=== PATIENT | female | born 1975 | race Caucasian/White ===

== ENCOUNTER 2018-11-25 16:45 | Emergency (ER) | payer BC ==
[2018-11-25 18:22] LABS: ANION GAP 12.9; CHLORIDE,CL 103 mmol/L (101-111); SODIUM,NA 138 mmol/L (135-145)
[2018-11-25] MEDS ORDERED: Iopamidol 612 MG/ML 100 ML Bottle IVPUSH ONE (18:31)
--- NOTE | 2018-11-25 18:47 | EDM.PDOC ---
<Edgar Radford Anupama - Last Filed: 11/25/18 18:42> ED HPI GENERAL MEDICAL PROBLEM - General Chief Complaint: CLINICAL APPLICATION CONSULTANT Problem Stated Complaint: PROBLEMS WITH BLEEDING & CLOTS-PAIN IN BACK Time Seen by Provider: 11/25/18 18:00 Source of Information: Reports: Patient History Limitations: Reports: No Limitations - History of Present Illness INITIAL COMMENTS - FREE TEXT/NARRATIVE: This 43 yo female patient reports to the ED due to right lower quadrant abdominal pain. The patient reports she has not had a menstrual cycle in about 1 year, but started to have bleeding on Wednesday. The patient reports she did see Dr. Sultana on Wednesday and was advised to come to the ED if she started to have increased bleeding or clots. The patient reports she has been having abdominal pain for the past 2 weeks, but her pain got worse today. The patient reports she has had a 2 pound weight gain over the past couple of days, but has not been eating much. Onset: Other (see above) Location: Reports: Abdomen Quality: Reports: Other Severity: Severe Improves with: Reports: None Worsens with: Reports: None Context: Reports: Other Lower Abdomen Pain Score (Numeric/FACES): 10 - Related Data Allergies Allergy/AdvReac Type Severity Reaction Status Date / Time erythromycin base Allergy Hives Verified 11/25/18 17:39 [Erythromycin Base] Penicillins Allergy Cannot Verified 11/25/18 17:39 Remember prednisone Allergy Cannot Verified 11/25/18 17:39 Remember Sulfa (Sulfonamide Allergy Cannot Verified 11/25/18 17:39 Antibiotics) Remember Home Meds: Home Meds Amitriptyline [Elavil] 75 mg PO BEDTIME 06/26/14 [History] Aspirin [Adult Low Dose Aspirin EC] 81 mg PO DAILY 06/26/14 [History] Cyanocobalamin (Vitamin B12) [Vitamin B12] 500 mcg PO DAILY 06/26/14 [History] Fish Oil/[place]-3 Fatty Acids [Fish Oil] 1,000 mg PO TID 06/26/14 [History] Lisinopril 20 mg PO DAILY 06/26/14 [History] Niacin 500 mg PO TID 06/26/14 [History] PNV95/Ferrous Fumarate/FA [ Multivitamins] 1 each PO DAILY 06/26/14 [ History] Polyethylene Glycol 3350 [MiraLAX] 17 gm PO DAILY 06/26/14 [History] Potassium Gluconate 99 mg PO DAILY 06/26/14 [History] Vitamin E 400 unit PO DAILY 06/26/14 [History] atorvaSTATin Calcium [Atorvastatin Calcium] 80 mg PO BEDTIME 06/26/14 [History] Acetaminophen [Tylenol Arthritis] 1,300 mg PO TID 07/03/17 [History] Cholecalciferol (Vitamin D3) [Vitamin D3] 2,000 unit PO DAILY 07/03/17 [History] Insulin Aspart [NovoLOG] 0 units SQ DAILY 07/03/17 [History] L.acidoph,Paracasei, B.lactis [Probiotic] 1 cap PO BID 07/03/17 [History] Meclizine HCl 25 mg PO TID PRN 07/03/17 [History] hydrOXYzine pamoate [Hydroxyzine Pamoate] 25 mg PO TID PRN 07/03/17 [History] Baclofen 10 mg PO TID 07/14/18 [History] Gabapentin [Neurontin] 600 mg PO TID 07/14/18 [History] buPROPion HCl [Wellbutrin Xl] 450 mg PO DAILY 07/14/18 [History] Dapagliflozin Propanediol [Farxiga] 10 mg PO DAILY 11/25/18 [History] Esomeprazole Magnesium 40 mg pe PO DAILY 11/25/18 [History] Magnesium 200 mg PO DAILY 11/25/18 [History] Mupirocin Cream [Bactroban Crm] 1 applic TOP BID 11/25/18 [History] oxyCODONE HCl/Acetaminophen [Percocet 5-325 mg Tablet] 1 tab PO Q8HR PRN [History] traZODone HCl [Trazodone HCl] 50 mg PO BEDTIME 11/25/18 [History] Past Medical History HEENT History: Reports: Sinusitis Cardiovascular History: Reports: High Cholesterol, Hypertension Gastrointestinal History: Reports: GERD Genitourinary History: Reports: UTI, Recurrent CLINICAL APPLICATION CONSULTANT History: Reports: Musculoskeletal History: Reports: Arthritis Neurological History: Reports: Vertigo Psychiatric History: Reports: Anxiety, Depression, Panic Attack Endocrine/Metabolic History: Reports: Diabetes, Type I Oncologic (Cancer) History: Reports: Lymphoma Dermatologic History: Reports: Cellulitis - Past Surgical History GI Surgical History: Reports: Cholecystectomy Female Surgical History: Reports: Section Musculoskeletal Surgical History: Reports: Shoulder Surgery Dermatological Surgical History: Reports: None Social & Family History - Family History Family Medical History: Noncontributory HEENT: Reports: None - Tobacco Use Smoking Status *Q: Never Smoker Second Hand Smoke Exposure: No - Caffeine Use Caffeine Use: Reports: Coffee - Recreational Drug Use Recreational Drug Use: No ED ROS GENERAL - Review of Systems Review Of Systems: ROS reveals no pertinent complaints other than HPI. ED EXAM, GI/ABD - Physical Exam Exam: See Below Exam Limited By: No Limitations General Appearance: Alert, WD/WN, Moderate Distress Eyes: Bilateral: Normal Appearance, EOMI Ears: Normal External Exam, Normal Canal, Hearing Grossly Normal, Normal TMs Nose: Normal Inspection, Normal Mucosa, No Blood Throat/Mouth: Normal Inspection, Normal Lips, Normal Teeth, Normal Gums, Normal Oropharynx, Normal Voice, No Airway Compromise Head: Atraumatic, Normocephalic Neck: Normal Inspection, Supple, Non-Tender, Full Range of Motion Respiratory/Chest: No Respiratory Distress, Lungs Clear, Normal Breath Sounds, No Accessory Muscle Use, Chest Non-Tender Cardiovascular: Normal Peripheral Pulses, Regular Rate, Rhythm, No Edema, No Gallop, No JVD, No Murmur, No Rub GI/Abdominal Exam: Normal Bowel Sounds, Soft, Guarding, Tender (RLQ) Rectal (Female) Exam: Deferred Back Exam: Normal Inspection, Full Range of Motion, NT Extremities: Normal Inspection, Normal Range of Motion, Non-Tender, Normal Capillary Refill, No Pedal Edema Neurological: Alert, Oriented, CN II-XII Intact, Normal Cognition, Normal Gait, Normal Reflexes, No Motor/Sensory Deficits Psychiatric: Normal Affect, Normal Mood Skin Exam: Warm, Dry, Intact, Normal Color, No Rash Lymphatic: No Adenopathy Course - Vital Signs Last Recorded V/S: Last Vital Signs Temp 37.1 C 11/25/18 19:59 Pulse 66 11/25/18 19:59 Resp 19 11/25/18 19:59 BP 121/67 11/25/18 19:59 Pulse Ox 97 11/25/18 19:59 - Orders/Labs/Meds Orders: Active Orders 24 hr Category Date Time Status HCG QUANTITATIVE [CHEM] Stat Lab 11/25/18 17:30 Received Labs: Laboratory Tests 11/25/18 11/25/1811/25/19 Range/Units 17:30 17:30 18:30 WBC 7.9 (5.0-10.0) 10^3/uL RBC 4.41 (4.2-5.4) 10^6/uL Hgb 13.8 (12.0-16.0) g/dL Hct 40.7 (37.0-47.0) % MCV 92.3 (80-100) fL MCH 31.3 (27.0-34.0) pg MCHC 33.9 (33.0-35.0) g/dL Plt Count 215 (150-450) 10^3/uL Neut % (Auto) 42.9 (42.2-75.2) % Lymph % (Auto) 44.8 (20.5-50.1) % [place] % (Auto) 10.0 H (2-8) % Eos % (Auto) 1.8 (1.0-3.0) % Baso % (Auto) 0.5 (0.0-1.0) % Sodium 138 (135-145) mmol/L Potassium 3.9 (3.6-5.0) mmol/L Chloride 103 (101-111) mmol/L Carbon Dioxide 26.0 (21.0-31.0) mmol/L Anion Gap 12.9 BUN 13 (7-18) mg/dL Creatinine 0.9 (0.6-1.3) mg/dL Est Cr Clr Drug Dosing 69.54 mL/min Estimated GFR (MDRD) > 60 BUN/Creatinine Ratio 14.44 Glucose 168 H (74-105) mg/dL Calcium 8.9 (8.4-10.2) mg/dl Total Bilirubin 0.6 (0.2-1.0) mg/dL AST 37 (10-42) IU/L ALT 53 (10-60) IU/L Alkaline Phosphatase 66 (42-121) IU/L Total Protein 7.2 (6.7-8.2) g/dl Albumin 4.0 (3.2-5.5) g/dl Globulin 3.2 Albumin/Globulin Ratio 1.25 Urine Color (YELLOW) Urine Appearance (CLEAR) Urine pH (5.0-9.0) Ur Specific [place] (1.005-1.030) Urine Protein (NEGATIVE) Urine Glucose (UA) (NEGATIVE) Urine Ketones (NEGATIVE) Urine Occult Blood (NEGATIVE) Urine Nitrite (NEGATIVE) Urine Bilirubin (NEGATIVE) Urine Urobilinogen (0.2-1.0) mg/dL Ur Leukocyte Esterase (NEGATIVE) Urine RBC /HPF Urine WBC (0-5/HPF) /HPF Ur Epithelial Cells (NOT SEEN) /HPF Amorphous Sediment (NOT SEEN) /HPF Urine Bacteria (0-FEW/HPF) /HPF Urine Mucus (NOT SEEN) /LPF Urine Opiates Screen Negative (NEGATIVE) Ur Oxycodone Screen Positive H (NEGATIVE) Urine Methadone Screen Negative (NEGATIVE) Ur Barbiturates Screen Negative (NEGATIVE) U Tricyclic Antidepress Negative (NEGATIVE) Ur Phencyclidine Scrn Negative (NEGATIVE) Ur Amphetamine Screen Negative (NEGATIVE) U Methamphetamines Scrn Negative (NEGATIVE) Urine MDMA Screen Negative (NEGATIVE) U Benzodiazepines Scrn Negative (NEGATIVE) Urine Cocaine Screen Negative (NEGATIVE) U Marijuana (THC) Screen Negative (NEGATIVE) 11/25/18 Range/Units 18:30 WBC (5.0-10.0) 10^3/uL RBC (4.2-5.4) 10^6/uL Hgb (12.0-16.0) g/dL Hct (37.0-47.0) % MCV (80-100) fL MCH (27.0-34.0) pg MCHC (33.0-35.0) g/dL Plt Count (150-450) 10^3/uL Neut % (Auto) (42.2-75.2) % Lymph % (Auto) (20.5-50.1) % [place] % (Auto) (2-8) % Eos % (Auto) (1.0-3.0) % Baso % (Auto) (0.0-1.0) % Sodium (135-145) mmol/L Potassium (3.6-5.0) mmol/L Chloride (101-111) mmol/L Carbon Dioxide (21.0-31.0) mmol/L Anion Gap BUN (7-18) mg/dL Creatinine (0.6-1.3) mg/dL Est Cr Clr Drug Dosing mL/min Estimated GFR (MDRD) BUN/Creatinine Ratio Glucose (74-105) mg/dL Calcium (8.4-10.2) mg/dl Total Bilirubin (0.2-1.0) mg/dL AST (10-42) IU/L ALT (10-60) IU/L Alkaline Phosphatase (42-121) IU/L Total Protein (6.7-8.2) g/dl Albumin (3.2-5.5) g/dl Globulin Albumin/Globulin Ratio Urine Color Red (YELLOW) Urine Appearance Turbid (CLEAR) Urine pH 6.5 (5.0-9.0) Ur Specific [place] 1.020 (1.005-1.030) Urine Protein 100 H (NEGATIVE) Urine Glucose (UA) 500 H (NEGATIVE) Urine Ketones Negative (NEGATIVE) Urine Occult Blood Large H (NEGATIVE) Urine Nitrite Negative (NEGATIVE) Urine Bilirubin Negative (NEGATIVE) Urine Urobilinogen 0.2 (0.2-1.0) mg/dL Ur Leukocyte Esterase Negative (NEGATIVE) Urine RBC Packed H /HPF Urine WBC 0-5 (0-5/HPF) /HPF Ur Epithelial Cells Rare (NOT SEEN) /HPF Amorphous Sediment Rare (NOT SEEN) /HPF Urine Bacteria Occasional (0-FEW/HPF) /HPF Urine Mucus Rare (NOT SEEN) /LPF Urine Opiates Screen (NEGATIVE) Ur Oxycodone Screen (NEGATIVE) Urine Methadone Screen (NEGATIVE) Ur Barbiturates Screen (NEGATIVE) U Tricyclic Antidepress (NEGATIVE) Ur Phencyclidine Scrn (NEGATIVE) Ur Amphetamine Screen (NEGATIVE) U Methamphetamines Scrn (NEGATIVE) Urine MDMA Screen (NEGATIVE) U Benzodiazepines Scrn (NEGATIVE) Urine Cocaine Screen (NEGATIVE) U Marijuana (THC) Screen (NEGATIVE) Meds: Medications Discontinued Medications Generic Name Dose Route Start Last Admin Trade Name Vladimir PRN Reason Stop Dose Admin Fentanyl 50 mcg 11/25/18 19:22 11/25/18 19:29 Sublimaze IVPUSH 11/25/18 19:23 50 mcg ONETIME ONE Administration Sodium Chloride 1,000 mls @ 999 mls/hr 11/25/18 19:22 11/25/18 19:29 Normal Saline IV 11/25/18 20:22 999 mls/hr .BOLUS ONE Administration Iopamidol 100 ml 11/25/18 18:31 11/25/18 19:12 Isovue-300 (61%) IVPUSH 11/25/18 18:32 98 ml ONETIME ONE Administration Departure - Departure Disposition: Home, Self-Care 01 Clinical Impression: Dysfunctional uterine bleeding Abdominal pain Qualifiers: Abdominal location: right lower quadrant Qualified Code(s): R10.31 - Right lower quadrant pain - Discharge Information Instructions: Abnormal Uterine Bleeding, [id number] Forms: ED Department Discharge Additional Instructions: 1) rest and avoid bending lifting straining 2) see family doctor Wednesday for EXPERIENCE PLANNING STRATEGIST CONSULT for possible uterine fibroid AND PELVIC ULTRASOUND 3) recheck if there is any change or concern <Paulo Sesay - Last Filed: 11/26/18 02:24> Course - Re-Assessments/Exams Free Text/Narrative Re-Assessment/Exam: 11/25/18 19:23 results discussed with pt 11/25/18 20:18 re-exam; s/p IV + Rx = much better Departure - Departure Time of Disposition: 20:30 Condition: Fair
[2018-11-25] MEDS ORDERED: Sodium Chloride 0.9% 1,000 ML IV ONE (19:22)
[2018-11-25] MEDS ORDERED: fentaNYL 100 MCG/2 ML SDV IVPUSH ONE (19:22)
[2018-11-25 19:59] VITALS: BP 121/67; PULSE 66
== END 2018-11-25 20:30 | disposition home or self-care (01) ==
LOC: DL.ED 16:45
DX: N93.9 Abnormal uterine and vaginal bleeding, unspecified (principal); I10 Essential (primary) hypertension; E78.00 Pure hypercholesterolemia, unspecified; K21.9 Gastro-esophageal reflux disease without esophagitis; F41.9 Anxiety disorder, unspecified; F32.9 Major depressive disorder, single episode, unspecified; E10.9 Type 1 diabetes mellitus without complications; Z79.899 Other long term (current) drug therapy; Z79.82 Long term (current) use of aspirin; Z88.1 Allergy status to other antibiotic agents; Z88.0 Allergy status to penicillin; Z88.8 Allergy status to other drugs, medicaments and biological substances; Z88.2 Allergy status to sulfonamides
CPT/HCPCS: 36415; 74177; 80053; 80305; 81001; 84703; 85025; 96361; 96374; 99284; J3010; J7030; Q9967

== ENCOUNTER 2018-12-23 06:12 | Day surgery (SDC) | payer BC ==
[~2018-12-23 06:12] MED LIST: Dextrose 5%-0.45% NaCl 1,000 ML IV SCH
[2018-12-23] MEDS ORDERED: fentaNYL 100 MCG/2 ML SDV IV ONE ×3 (06:13→07:40)
[2018-12-23] MEDS ORDERED: Midazolam 1 MG/ML 2 ML SDV IV ONE ×3 (06:13→07:41)
[2018-12-23] MEDS ORDERED: Midazolam 1 MG/ML 2 ML SDV ONE (06:14)
[2018-12-23] MEDS ORDERED: fentaNYL 100 MCG/2 ML SDV ONE (06:15)
--- NOTE | 2018-12-23 08:43 | OR ---
DATE: 12/23/2018 PROCEDURE PERFORMED: Esophagogastroduodenoscopy and multiple pinch biopsies. INSTRUMENT USED: [id number] Olympus video panendoscope. PREMEDICATIONS: No oral or topical anesthesia used. Fentanyl 100 mcg intravenous, Versed 2 mg intravenous. Nasal O2 cannula. The procedure was done under pulse oximetry, BP recording, and cardiac rehabilitation specialist. INDICATION: Diabetic patient on numerous medications with persistent intermittent dysphagia, dyspepsia, and abdominal pain, unexplained and not responsive to medical measures, on PPI. Esophagogastroduodenoscopy is performed for detection of any active erosive lesions, Briseno esophagus and/or malignancy also under consideration, H. pylori status to be determined, small bowel biopsies to be obtained for celiac disease if indicated, endoscopic hemostasis therapy if needed. DESCRIPTION OF PROCEDURE: The scope was passed with ease. Adequate visualization of the esophagus was made from proximal to distal areas. No upper esophageal lesions identified. No distal esophageal stricture. No uphill or downhill esophageal varices. No Aniya-Hood tear. No evidence of erosive esophagitis by [place] criteria. No esophageal polyp or tumor mass identified. Z-line was seen at around 39 cm distal to the oral verge, configuration consistent with grade 2 by ZAP classification. No proximal gastric varices noted. Gastric fundus examination by retroflexion showed no polypoid lesions. No gastric ulcer, malignant mass, or vascular ectasia identified. Some patchy erythema was noted in the antrum. Duodenal bulb showed no ulcer. Visualized second part of the duodenum was unremarkable. Multiple pinch biopsies, 4 in number were taken from different areas of the second part of the duodenum, tissues were also obtained from the duodenal bulb at 9 and 12 o'clock positions and sent for any histopathologic evidence of celiac disease. Multiple pinch biopsies were obtained from the gastric antrum and proximal body and sent for PyloriTek test for H. pylori and histopathology. No bleeding was noted from any of the visualized areas at the completion of examination. Photographs were taken of the duodenal bulb, gastric antrum, fundus, and distal esophagus. IMPRESSION: Patchy antral gastritis. The patient tolerated the procedure well. [facility] /[id number]
[2018-12-23 12:31] VITALS: BP 115/72; PULSE 72
[2018-12-24] MEDS ORDERED: Sodium Chloride 0.9% 10 ML Syringe FLUSH PRN (06:00)
== END 2018-12-23 09:58 | disposition home or self-care (01) ==
LOC: DL.ENDO 06:12
PROVIDERS: ATTEND Internal Medicine Gastroenterology
DX: K29.50 Unspecified chronic gastritis without bleeding (principal); K21.9 Gastro-esophageal reflux disease without esophagitis; E11.9 Type 2 diabetes mellitus without complications; I10 Essential (primary) hypertension; E78.5 Hyperlipidemia, unspecified; F32.9 Major depressive disorder, single episode, unspecified; E66.09 Other obesity due to excess calories; G89.4 Chronic pain syndrome; Z79.4 Long term (current) use of insulin; Z79.82 Long term (current) use of aspirin; Z79.899 Other long term (current) drug therapy; Z88.1 Allergy status to other antibiotic agents; Z88.0 Allergy status to penicillin; Z88.2 Allergy status to sulfonamides; Z88.8 Allergy status to other drugs, medicaments and biological substances; Z98.890 Other specified postprocedural states
CPT/HCPCS: 43239; 87077; J2250; J3010; J7042

== ENCOUNTER 2020-09-24 14:40 | Emergency (ER) | payer OTHER, BC ==
[2020-09-24 14:35] VITALS: BP 110/61; PULSE 69
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
[2020-09-24 15:16] LABS: ANION GAP 19.4 mEq/L (7-13); CHLORIDE,CL 102 mmol/L (98-107); SODIUM,NA 141 mmol/L (136-145)
[2020-09-24] MEDS ORDERED: Iopamidol 612 MG/ML 100 ML Bottle IVPUSH ONE (15:30)
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
== END 2020-09-24 17:25 | disposition home or self-care (01) ==
LOC: DL.ED 14:40
DX: S96.911A Strain of unspecified muscle and tendon at ankle and foot level, right foot, initial encounter (principal); S30.1XXA Contusion of abdominal wall, initial encounter; S10.91XA Abrasion of unspecified part of neck, initial encounter; E78.00 Pure hypercholesterolemia, unspecified; I10 Essential (primary) hypertension; J45.909 Unspecified asthma, uncomplicated; M19.90 Unspecified osteoarthritis, unspecified site; E10.9 Type 1 diabetes mellitus without complications; Z88.1 Allergy status to other antibiotic agents; Z88.0 Allergy status to penicillin; Z88.8 Allergy status to other drugs, medicaments and biological substances; Z88.2 Allergy status to sulfonamides; Z79.82 Long term (current) use of aspirin; Z79.4 Long term (current) use of insulin; Z79.899 Other long term (current) drug therapy; V89.2XXA Person injured in unspecified motor-vehicle accident, traffic, initial encounter
CPT/HCPCS: 36415; 70450; 72125; 73610; 74177; 80053; 81003; 81025; 82962; 85025; 99284; Q9967